=== PATIENT | male | born 1960 | race Caucasian/White ===

== ENCOUNTER → 2016-05-09 | Outpatient (CLI) | payer OTHER ==
[2016-05-09 14:38] LABS: BASOPHILS # (AUTO) 0.03 10*3/UL; BASOPHILS % (AUTO) 0.6 % (0-1); HEMOGLOBIN 15.9 g/dL (14.0-18.0); IMM GRAN % (AUTO) 0 % (0-5); IMM GRAN# (AUTO) 0 10*3/UL; LYMPHOCYTES # (AUTO) 1.15 10*3/uL; LYMPHOCYTES % (AUTO) 23.2 % (10-50); MEAN CORPUSCULAR HEMOGLOBIN 33.3 PG (27-31); MEAN CORPUSCULAR HGB CONC 33.8 g/dL (33-37); MEAN PLATELET VOLUME 9.9 FL (7.4-12.2); MONOCYTES # (AUTO) 0.36 10*3/UL (0.3-0.8); MONOCYTES % (AUTO) 7.3 % (5-15); NEUTROPHILS # (AUTO) 3.12 10*3/UL; NEUTROPHILS % (AUTO) 62.9 % (50-80); RDW COEFFICIENT OF VARIATION 14.2 % (11.5-14.5); RED BLOOD COUNT 4.78 10^6/uL (4.70-6.10); WHITE BLOOD COUNT 4.96 10^3/uL (4.8-10.8)
[2016-05-09 14:40] LABS: PLATELET MORPHOLOGY COMMENT NORMAL MORPHOLOGY (NORM)
[2016-05-09 14:50] LABS: ASPARTATE AMINO TRANSFERASE 26 IU/L (21-57); BILIRUBIN,TOTAL 0.6 mg/dL (0.3-1.2); BLOOD UREA NITROGEN 16 mg/dL (7-22); CALCIUM 9.8 mg/dL (8.7-10.7); CHLORIDE 101 meq/L (98-112); EST GLOMERULAR FILTRATION > 60 (>60 ml/min/1.73m(2)); GLUCOSE 89 mg/dL (78-110); HDL CHOLESTEROL 35 mg/dL (40-150); POTASSIUM 4.5 meq/L (3.8-5.2); SODIUM 141 meq/L (135-145); TOTAL PROTEIN 7.6 g/dL (6.1-8.0); TRIGLYCERIDES 278 mg/dL (44-200)
[2016-05-09 14:51] LABS: HEMOGLOBIN A1C 6.44 % (4.2-6.0); MEAN BLOOD GLUCOSE (CALC) 128.452 mg/dL
[2016-05-09 15:09] LABS: PERCENT IRON SATURATION 20.68 % (14-50)
== END ==
LOC: LAB 10:00
PROVIDERS: ATTEND Physician Assistant Medical
DX: E78.5 Hyperlipidemia, unspecified (principal); I10 Essential (primary) hypertension; K73.9 Chronic hepatitis, unspecified; D75.1 Secondary polycythemia; R73.9 Hyperglycemia, unspecified
CPT/HCPCS: 80053; 80061; 83036; 83540; 83550; 85025